=== PATIENT | male | born 1955 | race Caucasian/White ===

== ENCOUNTER 2022-10-19 06:55 | Emergency (ER) | payer OTHER ==
[2022-10-19 08:28] LABS: SARS-CoV-2 NAA Rapid Test Not Detected (NotDetected)
[2022-10-19] MEDS ORDERED: Ibuprofen 200 MG TAB ONE ×2 (08:47)
[2022-10-19] MEDS ORDERED: Levothyroxine Sodium 75 MCG TAB PO SCH (13:00)
[2022-10-19] MEDS ORDERED: Aspirin Chewable 81 MG TAB ONE (13:05)
[2022-10-19] MEDS ORDERED: Aspirin 325 mg Enteric Coated Tablet ONE (13:05)
[2022-10-19] MEDS ORDERED: hydrOXYzine 25 MG TAB ONE (13:13)
[2022-10-19] MEDS ORDERED: Acetaminophen 500 MG TAB ONE (13:13)
== END 2022-10-19 14:00 ==
LOC: NAV ERS 06:55
DX: H53.9 Unspecified visual disturbance (principal); F41.1 Generalized anxiety disorder; K21.9 Gastro-esophageal reflux disease without esophagitis; Z79.899 Other long term (current) drug therapy; Z79.82 Long term (current) use of aspirin; Z20.822 Contact with and (suspected) exposure to COVID-19
CPT/HCPCS: 99284